=== PATIENT | male | born 1990 | race Caucasian/White ===

== ENCOUNTER 2017-06-13 07:38 | Emergency (ER) | payer MEDICAID ==
--- NOTE | 2017-06-13 08:07 | EDPHY ---
H & P Stated Complaint: N/V,~5days;noted "a little" blood in vomit this am.Also ? sinus infection Time Seen by Provider: 06/13/17 07:47 HPI/ROS: CHIEF COMPLAINT: Vomited blood HISTORY OF PRESENT ILLNESS: This is a generally healthy 26-year-old male who arrives worried about nausea and vomiting that he has had for the last 5 days. He has vomited 4-5 times over that time period and this morning had a small amount of blood in the vomitus. He has had generalized abdominal pain, usually an aching sensation. Early on he had some mild constipation with this illness. He has not had diarrhea. He had a bowel movement this morning. He has not seen blood in his stool. He has had subjective fever with clamminess. He drinks from a mountain stream frequently, per his report. He has not had dysuria, urgency, frequency, or hematuria. No back or flank pain. He also reports a sinus cold that has been present for the past 5 days. He has had cough, sinus congestion, sinus drainage, sore throat. He has occasional headache that is positional. He took a natural decongestant and also some DayQuil. REVIEW OF SYSTEMS: A ten point review of systems was performed and is negative with the exception of the items mentioned in the HPI. Source: Patient Exam Limitations: No limitations - Personal History Current Tetanus Diphtheria and Acellular Pertussis (TDAP): Yes - Medical/Surgical History PMH: Negative. No surgeries. Other PMH: neg per pt - Social History Smoking Status: Never smoked Alcohol Use: None Drug Use: Marijuana Additional Social History: He is single. He is unemployed at this time. - Physical Exam Exam: General Appearance: Alert. Vital signs reviewed. Eyes: Pupils equal and round, no conjunctival injection, no discharge. Anicteric. ENT, Mouth: Mucous membranes are moist, mild oropharyngeal erythema without edema or exudates. No sinus tenderness. Neck: Anterior cervical lymphadenopathy, supple. Respiratory: Lungs are clear to auscultation; no wheezes, rales, or rhonchi. Cardiovascular: Regular rate and rhythm; no murmur, rub, or gallop. Gastrointestinal: Abdomen is soft with mild midepigastric tenderness, no guarding, no masses or organomegaly, bowel sounds normal. Skin: Warm and dry, no rashes on exposed skin, normal color. Back: Nontender to palpation over the thoracolumbar spine. No CVAT. Extremities: No lower extremity edema, no calf tenderness or swelling. Neurological: Alert and oriented. Moving all four extremities easily and equally. Psychiatric: Normal affect. Constitutional: Initial Vital Signs Temperature (C) 37 C 06/13/17 07:39 Heart Rate 98 06/13/17 07:39 Respiratory Rate 18 06/13/17 07:39 Blood Pressure 127/78 H 06/13/17 07:39 O2 Sat (%) 96 06/13/17 07:39 O2 Delivery Mode Room Air Allergies/Adverse Reactions: No Known Allergies Allergy (Unverified 06/13/17 07:43) Home Medications: Medication Instructions Recorded NK [No Known Home Meds] 06/13/17 Medical Decision Making ED Course/Re-evaluation: Re-evaluated at 9:45 a.m. after receiving 1 L of normal saline intravenously. He is feeling better. He continues with some mid epigastric tenderness on exam. Liver functions and bilirubin are elevated. Gallbladder ultrasound has been ordered. His lipase is normal. GB US reported to me as normal. On re-exam he continues with minimal midepigastric tenderness. I am recommending OTC acid reducing medication and FU if symptoms persist. He is given referrals for primary care. Danger signs reviewed with him. Differential Diagnosis: Abdominal pain including but not limited to appendicitis, cholecystitis, gastritis and urinary tract infection. - Data Points Laboratory Results: Laboratory Results 06/13/17 07:55 06/13/17 07:55 Departure - Departure Disposition: Home, Routine, Self-Care Clinical Impression: Abdominal pain Qualifiers: Abdominal location: epigastric Qualified Code(s): R10.13 - Epigastric pain Condition: Good Instructions: Acute Abdominal Pain (ED) Additional Instructions: Stick with bland foods while you regain your appetite. Be sure that you drink plenty of liquids. If you have fever, severe abdominal pain, persistent vomiting, any new or concerning symptoms you should be re-evaluated. I am referring you to a primary care physician anti [facility]. You should establish care locally with a doctor. Referrals: [facility] [Outside] - As per Instructions Anna Gauthier MD [Medical Doctor] - As per Instructions
[2017-06-13 08:11] LABS: % IMMATURE GRANULYOCYTES 0.4 % (0.0-1.1); ABSOLUTE IMMATURE GRANULOCYTES 0.03 10^3/uL (0.00-0.10); ADD DIFF? NO; ADD MORPH? NO; ADD SCAN? NO; ATYPICAL LYMPHOCYTE FLAG 40 (0-99); FRAGMENT RBC FLAG 0 (0-99); HEMATOCRIT 47.8 % (40.0-51.0); HEMOGLOBIN 16.7 g/dL (13.7-17.5); LEFT SHIFT FLG 0 (0-99); LIPEMIA HEMOLYSIS FLAG 90 (0-99); MEAN CELL HEMOGLOBIN 31.3 pg (27.9-34.1); MEAN CELL HEMOGLOBIN CONCENTR. 34.9 g/dL (32.4-36.7); MEAN CELL VOLUME 89.7 fL (81.5-99.8); MEAN PLATELET VOLUME 12.4 fL (8.7-11.7); PLATELET CLUMPS FLAG 0 (0-99); PLATELET COUNT 192 10^3/uL (150-400); RED BLOOD CELL COUNT 5.33 10^6/uL (4.40-6.38); RED CELL DISTRIBUTION WIDTH 12.2 % (11.5-15.2)
[2017-06-13 08:35] LABS: ALANINE AMINOTRANSFERASE 76 IU/L (21-72); ALBUMIN 4.9 g/dL (3.5-5.0); ALKALINE PHOSPHATASE 162 IU/L (38-126); ANION GAP 21 mEq/L (8-16); ASPARTATE AMINOTRANSFERASE 62 IU/L (17-59); BILIRUBIN,TOTAL 1.6 mg/dL (0.1-1.4); BILIRUBIN-CONJUGATED 0.6 mg/dL (0.0-0.5); CARBON DIOXIDE 20 mEq/l (22-31); CHLORIDE 102 mEq/L (97-110); GLOMERULAR FILTRATION RATE > 60; GLUCOSE 88 mg/dL (70-100); POTASSIUM 4.2 mEq/L (3.5-5.2); SODIUM 143 mEq/L (134-144); TOTAL PROTEIN 8.8 g/dL (6.3-8.2)
[2017-06-13 11:53] VITALS: BP 134/75; PULSE 90; RESP 14; TEMP 97.9; O2SAT 94
== END 2017-06-13 11:54 | disposition home or self-care (01) ==
DX: R10.13 Epigastric pain (principal)

== ENCOUNTER 2018-08-08 11:37 | Emergency (ER) | payer MEDICAID ==
[2018-08-08 11:45] VITALS: BP 114/66
--- NOTE | 2018-08-08 11:52 | EDPHY ---
H & P Stated Complaint: back pain, LLE pain Time Seen by Provider: 08/08/18 11:52 HPI/ROS: CHIEF COMPLAINT: Back pain, left leg radicular symptoms HISTORY OF PRESENT ILLNESS: The patient presents to the ED with complaints of ongoing back pain and left leg radicular symptoms. The patient has been struggling with sciatica for several months. He was seen in the emergency department a month ago and underwent a Solu-Medrol Dosepak with minimal improvement of his symptoms. The patient does complain primarily of left sacroiliac pain with intermittent symptoms of radicular shooting pain into his left posterior thigh and calf. Patient denies any bowel or bladder dysfunction. He denies any acute weakness. He denies additional acute complaints. He has been following up with [facility]. REVIEW OF SYSTEMS: A comprehensive 10 point review of systems is otherwise negative aside from elements mentioned in the history of present illness. Source: Patient - Personal History Current Tetanus/Diphtheria Vaccine: No Current Tetanus Diphtheria and Acellular Pertussis (TDAP): No - Medical/Surgical History Hx Asthma: No Hx Chronic Respiratory Disease: No Hx Diabetes: No Hx Cardiac Disease: No Hx Renal Disease: No Hx Cirrhosis: No Hx Alcoholism: No Hx HIV/AIDS: No Hx Splenectomy or Spleen Trauma: No Other PMH: lumbar injury 2013, - Social History Smoking Status: Never smoked - Physical Exam Exam: General Appearance: Alert, no distress Head: Atraumatic Eyes: Pupils equal, round, reactive ENT, Mouth: No hemotympanum, no oral trauma Neck: Nontender, trachea midline Respiratory: No chest wall tender, subcutaneous air, lungs clear bilaterally Cardiovascular: Regular rate and rhythm Abdomen: Abdomen is soft and nontender, pelvis stable Skin: No lacerations, No abrasion Back: Tenderness to palpation over the left sacroiliac joint Extremities: Nontender, full range of motion Neurological: 5/5 strength noted bilateral lower extremities, normal reflexes at the knees and ankles bilaterally, no evidence of cauda equina syndrome Constitutional: Initial Vital Signs Temperature (C) 36.7 C 08/08/18 11:43 Heart Rate 126 H 08/08/18 11:43 Respiratory Rate 18 08/08/18 11:43 Blood Pressure 114/66 08/08/18 11:43 O2 Sat (%) 96 08/08/18 11:43 O2 Delivery Mode Room Air Allergies/Adverse Reactions: No Known Allergies Allergy (Unverified 08/08/18 11:42) Home Medications: Medication Instructions Recorded Lidocaine [Lidoderm] 1 each TP AD PRN #15 adh..patch 08/08/18 Medical Decision Making ED Course/Re-evaluation: The patient presents to the ED with ongoing symptoms of sciatica and left sacroiliac ileitis. The patient has no evidence of a cauda equina or acute neurosurgical emergency noted on exam. Have encouraged the patient to continue to work with his primary care provider and performed physical therapy. If he fails physical therapy that he will need to do an outpatient MRI to see if he is a candidate for a YFN. The patient can have this done through [facility]. The patient will be given a prescription for lidocaine patches. Departure - Departure Disposition: Home, Routine, Self-Care Clinical Impression: Sciatica, Sacroiliitis Condition: Good Instructions: Sciatica (ED) Additional Instructions: 1. Take Ibuprofen or Motrin 600 mg by mouth three times a day. 2. Lidocaine patches as directed 3. Please follow up with [facility]. If you continue to have ongoing symptoms they may need to perform an MRI which will require prior authorization. Referrals: [facility],. [Clinic] - As per Instructions
== END 2018-08-08 12:29 | disposition home or self-care (01) ==
DX: M54.42 Lumbago with sciatica, left side (principal); M46.1 Sacroiliitis, not elsewhere classified